=== PATIENT | male | born 1985 | race African-American/Black ===

== ENCOUNTER 2018-03-18 16:10 | Emergency (ER) | payer OTHER, SELFPAY ==
[2018-03-18 16:12] VITALS: BP 111/80; PULSE 82; RESP 16; TEMP 36.4; O2SAT 98
--- NOTE | 2018-03-18 18:09 | ED_ITS ---
HPI - Back Pain/Injury <ALBERTO Schneider - Last Filed: 03/18/18 22:11> General Chief Complaint: Back Pain/Injury Stated Complaint: BACK AND NECK PAIN, NUMBNESS Time Seen by Provider: 03/18/18 18:08 Source: patient Mode of arrival: ambulatory Limitations: no limitations History of Present Illness HPI Narrative: 32-year-old healthy male that is a nonsmoker here for complaint of pain into the right side of his neck and into his right shoulder. He reports he has had this pain on and off over the past several years. He does report that he has had wound increase in the pain over the past couple of weeks. He denies any recent trauma. He denies any recent strenuous activities. He has states that he has been seen for this in the past and that they have done electric therapy for this. He reports that this week any has had some tingling this been radiating down into his right arm. He has not had any advanced imaging for his neck as of yet. He denies having any numbness or tingling today. Increased pain with motion of the head. He is ambulatory into the emergency room. MD Complaint: other Related Data Previous Rx's Medication Instructions Recorded meloxicam [Mobic] 7.5 mg PO BIDCC PRN #15 tab 05/22/17 cyclobenzaprine 10 mg PO TID PRN #15 tab 03/18/18 prednisone 40 mg PO DAILY #8 tab 03/18/18 Allergies Allergy/AdvReac Type Severity Reaction Status Date / Time No Known Allergies Allergy Uncoded 06/18/17 12:51 Review of Systems <ALBERTO Schneider - Last Filed: 03/18/18 22:11> Constitutional Denies chills, Denies fever(s), Denies lethargy and Denies weakness Eyes Denies change in vision, Denies eye discharge, Denies irritation and Denies loss of vision ENT Ears, Nose, Mouth, and Throat: Denies change in voice, Denies neck pain and Denies sore throat Cardiovascular Denies chest pain, Denies irregular heart rhythm, Denies lightheadedness, Denies palpitations, Denies dyspnea, Denies dyspnea on exertion and Denies orthopnea Respiratory Denies cough, Denies dyspnea, Denies dyspnea on exertion and Denies wheezing Gastrointestinal Gastrointestinal: Denies abdominal pain, Denies change in bowel habits, Denies diarrhea, Denies nausea and Denies vomiting Genitourinary Denies hematuria, Denies flank pain, Denies urinary incontinence and Denies urinary urgency Musculoskeletal Denies neck pain Comments: Neck pain Integumentary/Breasts Denies pruritus, Denies erythema, Denies rash and Denies wounds Neurologic Denies confusion, Denies loss of vision and Denies weakness Psychiatric Denies anxiety, Denies confusion, Denies depression, Denies homicidal ideation and Denies suicidal ideation Endocrine Denies palpitations Hematologic/Lymphatic Denies easy bruising Allergic/Immunologic Denies wheezing Exam <ALBERTO Schneider - Last Filed: 03/18/18 22:11> Initial Vital Signs Initial Vital Signs: Vital Signs Temperature 97.5 F L 03/18/18 16:12 Pulse Rate 82 03/18/18 16:12 Respiratory Rate 16 03/18/18 16:12 Blood Pressure 111/80 03/18/18 16:12 Pulse Oximetry 98 03/18/18 16:12 Const General: cooperative and well developed Nutritional Appearance: well nourished Orientation: alert, awake, oriented x3 and not confused [facility] Mouth: oral mucosae normal and moist mucous membranes Eyes Conjunctivae: conjunctivae normal Sclera: sclerae normal Pupils: PERRL EOM: EOM intact bilaterally Resp Effort & Inspection: normal respiratory effort, able to speak in complete sentences, no respiratory distress and no use of accessory muscles Auscultation: clear to auscultation bilaterally, no rales, no rhonchi and no wheezes Cardio Rate: regular rate Rhythm: regular rhythm Heart Sounds: no click, no gallops, no murmurs and no rubs Pulses: normal peripheral pulses Back/Spine/Pelvis Cervical Spine: normal cervical lordosis, cervical ROM normal (Decreased range of motion with turning head to right due to pain), cervical muscular tenderness , No cervical spinal tenderness and No step off deformity Skin General: no rashes or lesions noted, No jaundice and No petechiae Neuro General: alert, oriented x3, gait normal and no focal motor deficits Speech: speech normal Extrem Other: Full range of motion to the right arm. Distal sensation is intact. Distal pulses are intact. <Rosalba Herring MD - Last Filed: 03/18/18 23:15> Initial Vital Signs Initial Vital Signs: Vital Signs Temperature 97.5 F L 03/18/18 16:12 Pulse Rate 82 03/18/18 16:12 Respiratory Rate 16 03/18/18 16:12 Blood Pressure 111/80 03/18/18 16:12 Pulse Oximetry 98 03/18/18 16:12 Course <ALBERTO Schneider - Last Filed: 03/18/18 22:11> Vital Signs - 8 hr 03/18/18 16:12 03/18/18 19:53 Temperature 97.5 F L Pulse Rate 82 79 Respiratory Rate 16 20 Blood Pressure 111/80 130/85 Pulse Oximetry 98 98 <Rosalba Herring MD - Last Filed: 03/18/18 23:15> Vital Signs - 8 hr 03/18/18 16:12 03/18/18 19:53 Temperature 97.5 F L Pulse Rate 82 79 Respiratory Rate 16 20 Blood Pressure 111/80 130/85 Pulse Oximetry 98 98 MDM - Back Pain/Injury <ALBERTO Schneider - Last Filed: 03/18/18 22:11> MDM Narrative Medical decision making narrative: Nontraumatic neck pain that has been on and off over the past several years. Will treat with short course of prednisone for anti-inflammatory effects and muscle relaxer for a muscle strain into the right neck and shoulder area. May also use [id number] ibuprofen. Follow up with primary care provider next week for re-evaluation. Differential of pain and tingling to his right arm secondary to degenerative changes. May need to have MRI due to a chronic nature of his exacerbations of pain into the neck. For any worsening symptoms return to the emergency room. Discharge Plan Departure Patient Disposition: Home Clinical Impression: Neck pain on right side Discharge Date/Time: 03/18/18 19:53 Interventions: ED Discharge Assessment Last Done: 03/18/18 19:53 Instructions: DI for Neck Pain Activity Restrictions/Additional Instructions: Temporary treatment of steroids for anti-inflammatory effects along with over- the-counter ibuprofen to help with inflammation. Muscle relaxers prescribed to help with muscle tension use as directed no driving on the muscle relaxers a can make you drowsy. Follow up with your primary care provider next week for re -evaluation. Rest area. Gentle range of motion to painful area to keep muscles loose. If continued symptoms may need to obtain MRI for further evaluation. For any worsening symptoms return emergency room. Prescriptions: New cyclobenzaprine 10 mg tablet 10 mg PO TID PRN (Reason: muscle spasm) Qty: 15 RF: 0 prednisone 20 mg tablet 40 mg PO DAILY Qty: 8 RF: 0 No Action meloxicam [Mobic] 7.5 MG tablet 7.5 mg PO BIDCC PRNQty: 15 RF: 0 Referrals: [facility] [Provider Group]
[2018-03-18 19:53] VITALS: BP 130/85; PULSE 79; RESP 20; O2SAT 98
== END 2018-03-18 19:53 | disposition home or self-care (01) ==
PROVIDERS: Emergency Provider Nurse Practitioner Family
DX: M54.2 Cervicalgia (principal)
CPT/HCPCS: 99282